=== PATIENT | male | born 1950 | race Caucasian/White ===

== ENCOUNTER 2019-01-22 14:25 | Inpatient (IN) | payer MEDICARE, BC ==
[~2019-01-22] VITALS: Ht 175.3 cm; Wt 73.7 kg
[2019-01-22] MEDS ORDERED: BIVALIRUDIN 250 MG ONE ×2 (14:29→16:50)
[2019-01-22] MEDS ORDERED: TICAGRELOR 90 MG TABLET ONE (14:29)
[2019-01-22] MEDS ORDERED: FENTANYL PF 100 MCG/2ML ONE ×2 (14:29→16:50)
[2019-01-22] MEDS ORDERED: VERAPAMIL 2.5 MG/ML, 2ML ONE ×2 (14:29→16:50)
[2019-01-22] MEDS ORDERED: MIDAZOLAM 1 MG/ML, 5ML ONE ×2 (14:29→16:50)
[2019-01-22] MEDS ORDERED: LIDOCAINE 2%, 20ML ONE ×2 (14:29→16:50)
[2019-01-22] MEDS ORDERED: HEPARIN 1,000 UNITS/ML, 10ML ONE ×2 (14:29→16:50)
--- NOTE | 2019-01-22 14:29 | NUR ---
[facility]ory. notified nohemy in general production laborer of code cardiac pt coming. he stated he'd notify dr green who is in general production laborer currently. 1409 [facility] paged/dr mercado paged 1400 dr mercado in [place]
--- NOTE | 2019-01-22 14:58 | NUR ---
[facility] FROM [facility] PT HAD SUDDEN ONSET CP AT REST PRESENTED TO [facility] 12 LEAD SHOWED STEMI TRANSFERED TO [facility] PT AO4 ON ARRIVAL WITH IV ACCESS DR OVALLE MET PT IN THE ED JIMENEZ PT EVALUATED ON TRANSPORT COT AND DETERMINATION MADE TO TAKE PT DIRECTLY TO ROLLER INSPECTOR AND MENDER WITH DR OVALLE PT REC ARMATURE COIL WINDER 500NS 324 ASA 50MCG FENT 1 MG ATIVAN AND 4 ZOFRAN CONSENT INFORMATION PROVIDED BY DR OVALLE IN ED AND CONSENT BY ASSUMED PER DR OVALLE PT HAD CONTINOUS MONITORING ON CF EQUIPMENT NO CHANGE ENROUTE TO CATH REPORT TO CATH STAFF
[2019-01-22] MEDS ORDERED: ACETAMINOPHEN 325 MG TABLET PO PRN (15:00)
[2019-01-22] MEDS ORDERED: ZOLPIDEM 5MG TABLET PO PRN (15:00)
[2019-01-22] MEDS ORDERED: BISACODYL 10 MG SUPP PR PRN (15:00)
[2019-01-22] MEDS ORDERED: ONDANSETRON 2MG/ML, 2ML IVPush PRN (15:00)
[2019-01-22] MEDS ORDERED: NITROGLYCERIN 0.4 MG/SPRAY SL PRN (15:00)
[2019-01-22] MEDS ORDERED: PLEASE ENTER ALLERGIES MC SCH (15:00)
[2019-01-22 15:06] LABS: TROPONIN I < 0.015 ng/mL (0.000-0.045)
[2019-01-22] MEDS ORDERED: PHENYLEPHRINE 10 MG/ML ONE (15:19)
[2019-01-22] MEDS: SODIUM CHLORIDE 0.9% 1,000 ML IV SCH ×2 (15:46→18:12)
[2019-01-22] MEDS ORDERED: MORPHINE SULFATE 4 MG/ML, 1ML ONE (16:31)
[2019-01-22] MEDS: MORPHINE SULFATE 4 MG/ML, 1ML IVPush PRN ×2 (16:47→16:48)
[2019-01-22] MEDS ORDERED: [UNRECOGNIZED DRUG - OTHER] ONE (17:12)
[2019-01-22] MEDS ORDERED: ADENOSINE 6 MG/2 ML ONE (17:18)
[2019-01-22] MEDS ORDERED: HEPARIN 25,000 UNITS/500ML PMX 500 ML ONE (17:35)
[2019-01-22] MEDS ORDERED: CARVEDILOL 3.125 MG TABLET PO SCH (18:00)
[2019-01-22] MEDS ORDERED: HEPARIN 5,000 UNITS/ML, 1ML IV ONE (18:00)
[2019-01-22] MEDS: TIROFIBAN-0.9% SODIUM CHLORIDE 100 ML IV SCH ×2 (18:00→23:16)
[2019-01-22] MEDS ORDERED: HEPARIN 5,000 UNITS/ML, 1ML IV PRN (18:00)
[2019-01-22] MEDS ORDERED: HEPARIN 25,000 UNITS/500ML PMX 500 ML IV PRN (18:00)
[2019-01-22] MEDS ORDERED: TIROFIBAN IV SCH (18:00)
[2019-01-22] MEDS ORDERED: POTASSIUM CHLORIDE 20 MEQ TAB.ER.PRT ONE (20:22)
[2019-01-22] MEDS ORDERED: METOPROLOL TARTRATE 25 MG TABLET ONE (20:22)
[2019-01-22] MEDS ORDERED: POTASSIUM CHLORIDE 20 MEQ TAB.ER.PRT PO ONE (20:30)
[2019-01-22] MEDS: METOPROLOL TARTRATE 25 MG TABLET PO SCH (20:30)
[2019-01-22] MEDS: TICAGRELOR 90 MG TABLET PO SCH (21:18)
[2019-01-22] MEDS: ATORVASTATIN 80 MG TABLET PO SCH (21:19)
[2019-01-23] MEDS: SODIUM CHLORIDE 0.9% 1,000 ML IV SCH ×5 (01:49→09:37)
[2019-01-23 02:54] LABS: MEAN CORPUSCULAR HEMOGLOBIN 32.4 pg (27.5-34.5); MEAN CORPUSCULAR HGB CONC 33.8 g/dL (33.2-36.2); MEAN PLATELET VOLUME 7.3 fL (7.4-10.4); PLATELET COUNT 264 x10^3/uL (130-400); RED BLOOD COUNT 4.28 x10^6/uL (4.38-5.82); RED CELL DISTRIBUTION WIDTH 12.5 % (9.4-14.8)
[2019-01-23 03:06] LABS: ALANINE AMINOTRANSFERASE 72 U/L (12-78); ALBUMIN 3.1 g/dL (3.4-5.0); ANION GAP 6 mmol/L (5-15); CALCIUM 7.9 mg/dL (8.5-10.1); CHLORIDE 111 mmol/L (98-107); CHOLESTEROL, TOTAL 177 mg/dL (140-239); CREATININE 0.86 mg/dL (0.7-1.3)
[2019-01-23 03:08] LABS: ALKALINE PHOSPHATASE 90 U/L (45-117); BILIRUBIN,TOTAL 0.4 mg/dL (0.2-1.0); CHOL/HDL RATIO 4.2; HDL CHOL % 24 % (26-37); HDL CHOLESTEROL (DIRECT) 42 mg/dL (40-60); LDL CHOLESTEROL,CALCULATED 96 mg/dL (54-169); LDL/HDL RATIO 2.3 (0.5-3.0); TOTAL PROTEIN 6.3 g/dL (6.4-8.2); TRIGLYCERIDES 193 mg/dL (50-200); VLDL CHOLESTEROL 39 mg/dL (0-25)
[2019-01-23] MEDS: METOPROLOL TARTRATE 25 MG TABLET PO SCH ×2 (06:00→18:01)
[2019-01-23] MEDS: TIROFIBAN-0.9% SODIUM CHLORIDE 100 ML IV SCH (06:19)
[2019-01-23] MEDS: LISINOPRIL 5 MG TABLET PO SCH (08:40)
[2019-01-23] MEDS: ASPIRIN 81 MG TABLET EC PO SCH (08:40)
[2019-01-23] MEDS: TICAGRELOR 90 MG TABLET PO SCH ×2 (08:40→20:33)
[2019-01-23] MEDS ORDERED: SODIUM CHLORIDE NASAL SPRAY 45ML BOTTLE NAS PRN (14:30)
[2019-01-23] MEDS: FLUTICASONE NASAL SPRAY 16GM NAS SCH (16:25)
[2019-01-23] MEDS: ATORVASTATIN 80 MG TABLET PO SCH (20:32)
[2019-01-24 04:35] VITALS: BP 122/76
[2019-01-24] MEDS: METOPROLOL TARTRATE 25 MG TABLET PO SCH ×2 (05:33→18:14)
[2019-01-24] MEDS: ASPIRIN 81 MG TABLET EC PO SCH (08:35)
[2019-01-24] MEDS: FLUTICASONE NASAL SPRAY 16GM NAS SCH ×2 (08:35→20:11)
[2019-01-24] MEDS: TICAGRELOR 90 MG TABLET PO SCH ×2 (08:35→20:11)
[2019-01-24] MEDS: LISINOPRIL 5 MG TABLET PO SCH (08:35)
[2019-01-24] MEDS ORDERED: PNEUMOCOCCAL 23 VACCINE IM-VACC ONE (11:30)
[2019-01-24] MEDS ORDERED: FLU VAC QS 19-20(4YR UP)CEL/PF 0.5 ML IM-VACC ONE (11:30)
[2019-01-24 15:35] VITALS: BP 111/69
[2019-01-24 16:21] VITALS: BP 83/59
[2019-01-24 19:50] VITALS: BP 109/70
[2019-01-24] MEDS: ATORVASTATIN 80 MG TABLET PO SCH (20:11)
[2019-01-24] MEDS: MORPHINE SULFATE 4 MG/ML, 1ML IVPush PRN (20:17)
[2019-01-25 03:51] VITALS: BP 92/56
[2019-01-25] MEDS: METOPROLOL TARTRATE 25 MG TABLET PO SCH (05:49)
[2019-01-25 08:21] VITALS: BP 100/65
[2019-01-25] MEDS: FLUTICASONE NASAL SPRAY 16GM NAS SCH (08:23)
[2019-01-25] MEDS: ASPIRIN 81 MG TABLET EC PO SCH (08:23)
[2019-01-25] MEDS: TICAGRELOR 90 MG TABLET PO SCH (08:23)
[2019-01-25] MEDS ORDERED: ASPI81TA45 PO (13:14)
[2019-01-25] MEDS ORDERED: TICA90TA PO (13:14)
[2019-01-25] MEDS ORDERED: ATOR-2 PO (13:14)
[2019-01-25] MEDS ORDERED: METO25TA91 PO (13:14)
[2019-01-25 13:34] VITALS: BP 110/71
[2019-01-25] MEDS ORDERED: METOPROLOL SUCCINATE 25 MG TAB.ER.24H PO SCH (18:00)
== END 2019-01-25 14:39 | disposition home or self-care (01) | DRG 246 ==
LOC: ED 14:26 → EDIP 14:33 → CCU 15:19 → 5SO 01-24 14:49 → DCLOUNGE 01-25 14:21
PROVIDERS: ADMIT Internal Medicine Cardiovascular Disease; ATTEND Internal Medicine Cardiovascular Disease
PROC: 027034Z Dilation of Coronary Artery, One Artery with Drug-eluting Intraluminal Device, Percutaneous Approach (ICD-10-PCS; principal; 2019-01-22)
PROC: 02703ZZ Dilation of Coronary Artery, One Artery, Percutaneous Approach (ICD-10-PCS; 2019-01-22)
PROC: 4A023N7 Measurement of Cardiac Sampling and Pressure, Left Heart, Percutaneous Approach (ICD-10-PCS; 2019-01-22)
PROC: B211YZZ Fluoroscopy of Multiple Coronary Arteries using Other Contrast (ICD-10-PCS; 2019-01-22)
PROC: B215YZZ Fluoroscopy of Left Heart using Other Contrast (ICD-10-PCS; 2019-01-22)
PROC: B240ZZ3 Ultrasonography of Single Coronary Artery, Intravascular (ICD-10-PCS; 2019-01-22)
PROC: B210YZZ Fluoroscopy of Single Coronary Artery using Other Contrast (ICD-10-PCS; 2019-01-22)
DX: I21.19 ST elevation (STEMI) myocardial infarction involving other coronary artery of inferior wall (principal); I50.31 Acute diastolic (congestive) heart failure; F17.210 Nicotine dependence, cigarettes, uncomplicated; I27.20 Pulmonary hypertension, unspecified; E78.5 Hyperlipidemia, unspecified; F41.9 Anxiety disorder, unspecified; R00.1 Bradycardia, unspecified; I95.9 Hypotension, unspecified; I25.5 Ischemic cardiomyopathy; Z72.89 Other problems related to lifestyle; Z85.46 Personal history of malignant neoplasm of prostate; Z79.899 Other long term (current) drug therapy; Z23 Encounter for immunization
CPT/HCPCS: 36415; 71045; 80047; 80053; 80061; 83735; 84484; 85027; 85520; 87081; 90674; 92978; 93005; 93306; 93454; 93458; 99156; 99157; 99285; C1753; C1769; C1894; G0378; J0153; J0583; J1644; J2250; J3010; C1725; C1874; C1887; J2270; J2370; J7030; Q9967

== ENCOUNTER → 2019-05-19 | Outpatient (CLI) | payer MEDICARE, BC ==
[~2019-05-19] MED LIST: ASPI81TA45 PO; ATOR-2 PO; METO25TA91 PO; TICA90TA PO
== END | disposition home or self-care (01) ==
LOC: CFH 10:40
PROVIDERS: ATTEND Internal Medicine Cardiovascular Disease
DX: I08.8 Other rheumatic multiple valve diseases (principal); I25.10 Atherosclerotic heart disease of native coronary artery without angina pectoris; I10 Essential (primary) hypertension
CPT/HCPCS: 93306